=== PATIENT | female | born 1960 | race Caucasian/White ===

== ENCOUNTER 2024-01-26 10:02 | Inpatient (IN) ==
[2024-01-26] MEDS ORDERED: DEXAMETHASONE 10 MG/ML VIAL ONE (12:50)
[2024-01-26] MEDS ORDERED: PROPOFOL 200 MG/20 ML VIAL IV ONE (12:50)
[2024-01-26] MEDS ORDERED: KETAMINE 50 MG/ML Syringe IV ONE (12:50)
[2024-01-26] MEDS ORDERED: ONDANSETRON 4 MG/2 ML VIAL ONE ×2 (12:50→15:19)
[2024-01-26] MEDS ORDERED: LIDOCAINE 2% PF 5 ML VIAL ONE (12:50)
[2024-01-26] MEDS ORDERED: ROCURONIUM 10 MG/ML ML IV ONE ×2 (12:50→14:59)
[2024-01-26] MEDS ORDERED: fentaNYL 100 MCG/2 ML VIAL ONE (13:27)
[2024-01-26] MEDS: ceFAZolin 2 GM in DEXTROSE 5% IN WATER 50 ML IV SCH (13:52)
[2024-01-26] MEDS ORDERED: ceFAZolin 1 GM VIAL ONE (13:55)
[2024-01-26] MEDS ORDERED: MAGNESIUM SULFATE 2 GM/50 ML BAG IV ONE (13:56)
[2024-01-26] MEDS ORDERED: HYDROmorphone 0.5 MG/0.5 ML SYRINGE ONE (13:57)
[2024-01-26] MEDS ORDERED: SUGAMMADEX SODIUM 200 MG/2 ML VIAL IV ONE (15:19)
[2024-01-26] MEDS: TOBRAMYCIN SULFATE 1.2 GM VIAL TOPICAL ONE (15:30)
[2024-01-26] MEDS: VANCOMYCIN 1 GM VIAL TOPICAL SCH (15:30)
[2024-01-26] MEDS ORDERED: IPRATROPIUM/ALBUTEROL 3 ML AMPUL.NEB NEB PRN (15:31)
[2024-01-26] MEDS ORDERED: ONDANSETRON 4 MG/2 ML VIAL IV PRN ×2 (15:31→16:03)
[2024-01-26] MEDS ORDERED: diphenhydrAMINE 50 MG/ML VIAL IV PRN (15:31)
[2024-01-26] MEDS ORDERED: MEPERIDINE 25 MG/ML VIAL IV PRN (15:31)
[2024-01-26] MEDS ORDERED: LACTATED RINGERS 250 ML IV PRN (15:31)
[2024-01-26] MEDS ORDERED: FLEETS ADULT 1 DOSE ENEMA PR PRN (16:03)
[2024-01-26] MEDS ORDERED: MAGNESIUM HYDROXIDE 30 ML ORAL.SUSP PO PRN (16:03)
[2024-01-26] MEDS ORDERED: BISACODYL 10 MG SUPP.RECT PR PRN (16:03)
[2024-01-26] MEDS ORDERED: POLYETHYLENE GLYCOL 3350 17 GM PACKET PO PRN (16:03)
[2024-01-26] MEDS ORDERED: BENZOCAINE/MENTHOL 1 LOZENGE PO PRN (16:03)
[2024-01-26] MEDS ORDERED: 0.9 % SODIUM CHLORIDE 10 ML SYRINGE IV PRN (16:05)
[2024-01-26] MEDS: fentaNYL 100 MCG/2 ML VIAL IV PRN (16:13)
[2024-01-26] MEDS: ACETAMINOPHEN 1,000 MG/100 ML BAG IV ONE (16:16)
[2024-01-26] MEDS: METHOCARBAMOL 1,000 MG/10 ML VIAL IV PRN (16:16)
[2024-01-26] MEDS: DIAZEPAM 10 MG/2 ML SYRINGE IV ONE (16:30)
[2024-01-26] MEDS: HYDROmorphone 0.5 MG/0.5 ML SYRINGE IV PRN (16:33)
[2024-01-26] MEDS: TRANEXAMIC ACID 1,000 MG/10 ML VIAL IV ONE (17:29)
[2024-01-26] MEDS: LACTATED RINGERS 1,000 ML IV SCH ×2 (17:29→17:30)
[2024-01-26] MEDS: DIAZEPAM 10 MG/2 ML SYRINGE ONE (17:34)
[2024-01-26] MEDS: KETOROLAC 15 MG/ML VIAL IV PRN (17:48)
[2024-01-26] MEDS: oxyCODONE IR 5 MG TABLET PO PRN (17:50)
[2024-01-26] MEDS: ACETAMINOPHEN 500 MG TABLET PO SCH (22:27)
[2024-01-26] MEDS: ceFAZolin 1 GM VIAL IV SCH (22:27)
[2024-01-26] MEDS: METHOCARBAMOL 500 MG TABLET PO PRN (22:28)
[2024-01-26] MEDS: ASPIRIN 81 MG TAB.CHEW CHEWED SCH (22:28)
[2024-01-26] MEDS: DOCUSATE SODIUM 100 MG CAPSULE PO SCH (22:28)
[2024-01-26] MEDS: 0.9 % SODIUM CHLORIDE 10 ML SYRINGE IV SCH ×2 (22:28)
[2024-01-26] MEDS: SENNOSIDES 1 TABLET PO SCH (22:28)
[2024-01-27] MEDS ORDERED: LIDOCAINE 1% 10 ML VIAL SQ ONE (14:47)
[2024-01-27] MEDS ORDERED: SODIUM CHLORIDE IRRIG SOLUTION 250 ML BOTTLE IRR ONE (14:47)
[2024-01-27] MEDS: amLODIPine 10 MG TABLET PO ONE (16:39)
[2024-01-27 20:22] LABS: Glomerular Filtration Rate 101
[2024-01-27] MEDS: PIPERACILLIN SODIUM/TAZOBACTAM 3.375 GM in DEXTROSE 5% IN WATER 50 ML IV ONE (20:59)
[2024-01-27] MEDS: VANCOMYCIN PER PHARMACY IV ONE (21:00)
[2024-01-27] MEDS: 0.9 % SODIUM CHLORIDE 10 ML SYRINGE IV SCH (21:00)
[2024-01-27] MEDS: VANCOMYCIN 1,500 MG in 0.9 % SODIUM CHLORIDE 500 ML IV ONE (21:00)
[2024-01-27] MEDS ORDERED: VANCOMYCIN PER PHARMACY IV SCH (21:15)
[2024-01-28] MEDS: PIPERACILLIN SODIUM/TAZOBACTAM 3.375 GM in DEXTROSE 5% IN WATER 100 ML IV SCH (00:30)
[2024-01-28] MEDS: diphenhydrAMINE 25 MG CAPSULE PO PRN (05:33)
[2024-01-28] MEDS: diphenhydrAMINE 25 MG CAPSULE ONE (05:38)
[2024-01-28 06:41] LABS: Basophils # (Auto) 0.03 K/mcL (0.00-0.30); Basophils % (Auto) 0.2 % (0.0-2.0); Eosinophils # (Auto) 0.57 K/mcL (0.00-0.70); Eosinophils % (Auto) 4.2 % (0.0-7.0); Hematocrit 33.2 % (34.1-44.9); Hemoglobin 10.8 g/dL (11.2-15.7); Lymphocytes # (Auto) 3.42 K/mcL (1.50-4.80); Mean Corpuscular HGB Conc 32.5 g/dL (31.0-36.0); Mean Platelet Volume 9.6 fL (8.8-12.5); Monocytes # (Auto) 0.91 K/mcL (0.10-0.90); Monocytes % (Auto) 6.6 % (1.0-12.0); Neutrophils % (Auto) 63.8 % (38.0-78.0); Platelet Count 240 K/mcL (140-440); RBC 3.65 M/mcL (3.59-5.38); Red Cell Distribution Width 13.1 % (11.5-14.5); WBC 13.7 K/mcL (4.5-11.0)
[2024-01-28 07:37] LABS: ALT/SGPT 8 U/L (<40); AST/SGOT 16 U/L (<32); Albumin 3.7 gm/dL (3.2-5.2); Albumin/Globulin Ratio 1.5 (1.0-2.3); Alkaline Phosphatase 92 U/L (39-117); Bilirubin,Total 0.3 mg/dL (0.1-1.0); Blood Urea Nitrogen 11 mg/dL (8-23); Calcium 8.7 mg/dL (8.6-10.4); Carbon Dioxide 24 mmol/L (22-30); Chloride 103 mmol/L (96-108); Globulin 2.4 gm/dL (2.2-3.7); Glomerular Filtration Rate 109; Glucose 104 mg/dL (70-105); Potassium 3.5 mmol/L (3.3-5.1); Sodium 138 mmol/L (133-145)
[2024-01-28] MEDS: amLODIPine 10 MG TABLET PO SCH (08:38)
[2024-01-28] MEDS: VANCOMYCIN 1,250 MG in 0.9 % SODIUM CHLORIDE 500 ML IV SCH (10:03)
[2024-01-28] MEDS: hydrALAZINE 20 MG/ML VIAL IV PRN (13:09)
[2024-01-28] MEDS: CALCIUM CARBONATE 500 MG TAB.CHEW CHEWED PRN (14:58)
[2024-01-29] MEDS: ENOXAPARIN 40 MG/0.4 ML SYRINGE SQ SCH (08:39)
[2024-01-29] MEDS: HYDROcodone/APAP 10/325MG TABLET PO PRN (21:30)
[2024-01-30] MEDS: 0.9 % SODIUM CHLORIDE 10 ML SYRINGE IV PRN (11:06)
== END 2024-01-30 14:05 | disposition home or self-care (01) | DRG 467 ==
LOC: ED 10:02 → SSSU 12:44 → MEDSUR 17:07
PROVIDERS: ADMIT Internal Medicine; ATTEND Orthopaedic Surgery